=== PATIENT | female | born 1990 | race Caucasian/White ===

== ENCOUNTER 2017-10-03 21:05 | Emergency (ER) | payer OTHER, MEDICAID ==
[~2017-10-03] VITALS: Ht 165.1 cm; Wt 90.7 kg
[~2017-10-03 21:05] MED LIST: IBUPROFEN 600600 M1 PO; ROBAXIN500 MG PO
[2017-10-03 21:59] LABS: URINE BILIRUBIN NEGATIVE (Negative); URINE BLOOD NEGATIVE (Negative); URINE CLARITY CLEAR; URINE COLOR YELLOW; URINE GLUCOSE-RANDOM NEGATIVE (Negative); URINE KETONES NEGATIVE (Negative); URINE LEUKOCYTES-REFLEX NEGATIVE (Negative); URINE NITRITE-REFLEX NEGATIVE (Negative); URINE PROTEIN NEGATIVE (Negative); URINE SPECIFIC GRAVITY >= 1.030 (1.005-1.030); URINE UROBILINOGEN 0.2 E.U./dl (0.2-1.0)
[2017-10-03] MEDS ORDERED: B12 (22:04)
[2017-10-03] MEDS ORDERED: UNISOM (22:06)
[2017-10-03 22:42] VITALS: BP 136/84
== END 2017-10-03 22:44 | disposition home or self-care (01) ==
LOC: M.ERS 21:05
PROVIDERS: Nurse Practitioner Family
DX: O23.512 Infections of cervix in pregnancy, second trimester (principal); Z3A.15 15 weeks gestation of pregnancy; Z98.890 Other specified postprocedural states

== ENCOUNTER 2020-07-17 15:15 | Emergency (ER) | payer OTHER ==
[~2020-07-17] VITALS: Ht 165.1 cm; Wt 72.6 kg
[~2020-07-17 15:15] MED LIST changes: +B12; +UNISOM
[2020-07-17 16:58] VITALS: BP 134/68
== END 2020-07-17 16:59 | disposition home or self-care (01) ==
LOC: M.ERS 15:15
DX: S50.11XA Contusion of right forearm, initial encounter (principal); Z20.2 Contact with and (suspected) exposure to infections with a predominantly sexual mode of transmission; Z98.890 Other specified postprocedural states; W10.8XXA Fall (on) (from) other stairs and steps, initial encounter; Y93.89 Activity, other specified; Y92.89 Other specified places as the place of occurrence of the external cause; Y99.8 Other external cause status